=== PATIENT | male | born 1965 | race Caucasian/White ===

== ENCOUNTER 2020-05-09 03:11 | Emergency (ER) | payer OTHER ==
[~2020-05-09] VITALS: Ht 182.9 cm; Wt 93.4 kg
--- NOTE | 2020-05-09 03:42 | NUR ---
PT AAOX4. BIBSELF C/O SI TO JUMP INFRONT OF TRAFFIC -HI. PT REQUESTING VOLUNTARY ADMISSION TO A PSYCH FACILITY. NO ACUTE DISTRESS NOTED. SKIN WARM AND INTACT. PT PLACED IN BED 11, IN GOWN, ON MONITOR AND PULSE OX. SITTER AT BEDSIDE. PT CLOTHES AND BELONGINGS PLACED IN LOCKER.
--- NOTE | 2020-05-09 03:43 | NUR ---
URINE COLLECTED AND SENT TO LAB
--- NOTE | 2020-05-09 03:44 | NUR ---
CALLED SECURITY FOR WANDING
--- NOTE | 2020-05-09 04:30 | NUR ---
POISER BALANCE AT BEDSIDE FOR BLOOD DRAW
[2020-05-09 04:39] LABS: BASOPHILS % (AUTO) 0.8 % (0.0-2.0); EOSINOPHILS % (AUTO) 3.6 % (0.0-6.0); HEMATOCRIT 43 % (39-51); HEMOGLOBIN 13.9 g/dL (13.5-17.5); LYMPHOCYTES # (AUTO) 2.2 /CMM (0.8-4.8); LYMPHOCYTES % (AUTO) 35.6 % (20.0-44.0); MEAN CORPUSCULAR HGB CONC 32 g/dl (31.0-36.0); MEAN CORPUSCULAR VOLUME 82 fL (80-96); MONOCYTES # (AUTO) 0.8 /CMM (0.1-1.30); MONOCYTES % (AUTO) 12.5 % (2.0-12.0); NEUTROPHILS # (AUTO) 2.9 /CMM (1.8-8.9); NEUTROPHILS % (AUTO) 47.5 % (43.0-81.0); PLATELET COUNT (AUTO) 238 /CMM (150-450); RED BLOOD CELL COUNT(AUTO) 5.22 MIL/uL (4.5-6.0); WHITE BLOOD COUNT (AUTO) 6.1 K/uL (4.3-11.0)
[2020-05-09 04:42] LABS: APPEARANCE,URINE CLEAR (CLEAR); BILIRUBIN,URINE SMALL (NEGATIVE); BLOOD, URINE NEGATIVE Ery/uL (NEGATIVE); COLOR,URINE YELLOW (YELLOW); KETONES,URINE NEGATIVE (NEGATIVE); LEUKOCYTE ESTERASE ,URINE NEGATIVE (NEGATIVE); NITRITE, URINE NEGATIVE (NEGATIVE); PROTEIN,URINE NEGATIVE (NEGATIVE); UGLUCOSE NEGATIVE (NEGATIVE); UROBILINOGEN,URINE 0.2 EU/dL (0.2)
--- NOTE | 2020-05-09 04:48 | NUR ---
PT ASLEEP, PROVIDED WITH BLANKETS.
[2020-05-09 05:01] LABS: ALANINE AMINOTRANSFERASE 30 U/L (12-78); ALBUMIN 3.6 g/dL (3.4-5.0); ALCOHOL, BLOOD < 3 mg/dL (0-0); ALKALINE PHOSPHATASE 97 U/L (46-116); ASPARTATE AMINOTRANSFERASE 31 U/L (15-37); BILIRUBIN,DIRECT 0.1 mg/dL (0.0-0.2); BILIRUBIN,TOTAL 0.3 mg/dL (0.2-1.0); CALCIUM, SERUM 8.9 mg/dL (8.5-10.1); CARBON DIOXIDE 28 mmol/L (21-32); CHLORIDE 104 mmol/L (98-107); GLUCOSE 103 mg/dL (74-106); POTASSIUM 3.8 mmol/L (3.5-5.1); SALICYLATE 5.6 mg/dL (2.8-20.0); SODIUM SERUM 142 mmol/L (136-145); TOTAL PROTEIN, SERUM 7.4 g/dL (6.4-8.2); UREA NITROGEN, BLOOD 15 mg/dL (7-18)
[2020-05-09 05:05] LABS: ACETAMINOPHEN 0 ug/ml (10-30)
--- NOTE | 2020-05-09 06:16 | NUR ---
Patient is resting comfortably in bed with eyes closed. Easily aroused. VSS
--- NOTE | 2020-05-09 08:32 | NUR ---
BREAKFAST TRAY PROVIDED, TOLERATING PO WELL.
--- NOTE | 2020-05-09 09:18 | NUR ---
Received a call from [facility] (socal intake) patient is accepted at [facility] sup [phone] Galdamez accepting .
--- NOTE | 2020-05-09 09:27 | NUR ---
AMBULIFE WILL BE HERE IN 60 MINS PER AL @ [id number] REF #[id number]
--- NOTE | 2020-05-09 09:59 | NUR ---
SPOKE TO MINNIE HOLT, ADMITTING THEN MAIN BUILDING AT , ROOM NUMBER [id number]
[2020-05-09 11:16] VITALS: BP 112/60
--- NOTE | 2020-05-09 11:16 | NUR ---
Patient picked up by [facility] in stable condition. Patient will be transferred to [facility]. Clinicals provided to EMS.
== END 2020-05-09 11:17 ==
LOC: ER 03:11
DX: R45.851 Suicidal ideations (principal); R44.0 Auditory hallucinations; F19.10 Other psychoactive substance abuse, uncomplicated; F31.9 Bipolar disorder, unspecified; F17.200 Nicotine dependence, unspecified, uncomplicated
CPT/HCPCS: 36415; 80048; 80076; 80305; 80307; 80329; 81001; 85025; 99285; G0480; 81000-TC